=== PATIENT | female | born 1955 | race Caucasian/White ===

== ENCOUNTER 2021-03-31 10:03 | Outpatient (CLI) | payer MEDICARE | END 2021-03-31 10:04 | disposition home or self-care (01) | LOC: CSHRAD 10:03 | PROVIDERS: ATTEND Nurse Practitioner | DX: I11.0 Hypertensive heart disease with heart failure (principal); I50.22 Chronic systolic (congestive) heart failure; T82.110A Breakdown (mechanical) of cardiac electrode, initial encounter; I70.90 Unspecified atherosclerosis; Z95.810 Presence of automatic (implantable) cardiac defibrillator | CPT/HCPCS: 71046 ==

== ENCOUNTER 2021-09-29 13:59 | Outpatient (CLI) | payer MEDICARE | END 2021-09-29 14:00 | disposition home or self-care (01) | LOC: CSHULT 13:59 | PROVIDERS: ATTEND Urology | DX: R33.9 Retention of urine, unspecified (principal); N28.1 Cyst of kidney, acquired; N32.89 Other specified disorders of bladder | CPT/HCPCS: 76770 ==

== ENCOUNTER 2022-06-15 08:52 | Outpatient (CLI) | payer MEDICARE | END 2022-06-15 08:53 | disposition home or self-care (01) | LOC: CSHMAMMO 08:52 | PROVIDERS: ATTEND Family Medicine | DX: Z12.31 Encounter for screening mammogram for malignant neoplasm of breast (principal); Z85.3 Personal history of malignant neoplasm of breast; Z98.890 Other specified postprocedural states | CPT/HCPCS: 77063; 77067 ==

== ENCOUNTER 2024-06-19 09:25 | Outpatient (CLI) | payer MEDICARE | END 2024-06-19 09:26 | disposition home or self-care (01) | LOC: CSHMAMMO 09:25 | PROVIDERS: ATTEND Family Medicine | DX: Z12.31 Encounter for screening mammogram for malignant neoplasm of breast (principal); Z98.890 Other specified postprocedural states | CPT/HCPCS: 77063; 77067 ==